=== PATIENT | male | born 1975 ===

== ENCOUNTER 2017-08-20 20:20 | Emergency (ER) | payer SELFPAY ==
[2017-08-20] MEDS ORDERED: Sodium Chloride 0.9% 1,000 ML IV ONE (20:46)
--- NOTE | 2017-08-20 20:50 | C.PDOC ---
History Of Present Illness <Lani Streeter - Last Filed: 08/20/17 23:20> <Roselyn Hunter - Last Filed: 08/21/17 02:12> 41 year old male presents to ED with complaints of sore throat and swelling to the right side of his neck for 6 days. Patient states the swelling has increased and pain now spreading from neck to ear and face. He reports subjective fever and painful to swallow but no difficulty swallowing. He tried OTC cold medicine without relief. He denies any PMH or similar symptoms. ( Lani Streeter) History Per: Patient History/Exam Limitations: no limitations Onset/Duration Of Symptoms: Days (6) Current Symptoms Are (Timing): Still Present Severity: Moderate <Lani Streeter - Last Filed: 08/20/17 23:20> <Roselyn Hunter - Last Filed: 08/21/17 02:12> Time Seen by Provider: 08/20/17 20:37 Chief Complaint (Nursing): Upper Extremity Problem/Injury Past Medical History Reviewed: Historical Data, Nursing Documentation, Vital Signs - Medical History PMH: No Chronic Diseases Surgical History: No Surg Hx Family History: States: Unknown Family Hx - Social History Hx Alcohol Use: No Hx Substance Use: No <Lani Streeter - Last Filed: 08/20/17 23:20> Vital Signs: Last Vital Signs Temp 98.2 F 08/20/17 23:01 Pulse 80 08/20/17 23:01 Resp 16 08/20/17 23:01 BP 111/67 08/20/17 23:01 Pulse Ox 98 08/20/17 23:20 Review Of Systems Constitutional: Positive for: Fever (subjective) Eyes: Negative for: Pain, Vision Change ENT: Positive for: Ear Pain, Throat Pain Cardiovascular: Negative for: Chest Pain, Palpitations Respiratory: Negative for: Cough, Shortness of Breath Gastrointestinal: Negative for: Vomiting, Abdominal Pain, Diarrhea Genitourinary: Negative for: Dysuria Musculoskeletal: Positive for: Neck Pain Skin: Negative for: Rash Neurological: Negative for: Weakness, Numbness <Lani Streeter - Last Filed: 08/20/17 23:20> Physical Exam - Physical Exam Appears: Non-toxic, No Acute Distress Skin: Warm, Dry, No Rash Head: Atraumatic, Normacephalic Eye(s): bilateral: Normal Inspection, EOMI Ear(s): Bilateral: Normal Nose: Normal, No Flaring, No Epistaxis Oral Mucosa: Moist Tongue: Normal Appearing, No Swelling Lips: Normal Appearing, No Swelling Teeth: Normal Dentition Gingiva: Normal Appearing, No Erythema Throat: Normal, No Erythema, No Exudate, No Drooling, No Mass Neck: Normal ROM, Other (tenderness swelling and mild erythema to the anterior right side of neck and thyroid region, no nodules; pain with neck extension) Chest: Symmetrical Cardiovascular: Rhythm Regular, No Murmur Respiratory: Normal Breath Sounds, No Rhonchi, No Wheezing Gastrointestinal/Abdominal: Soft, No Tenderness Back: Normal Inspection Extremity: Bilateral: Atraumatic, Normal Color And Temperature, Normal ROM Neurological/Psych: Oriented x3, Normal Speech <FerdinandLani L - Last Filed: 08/20/17 23:20> ED Course And Treatment - Laboratory Results Result Diagrams: 08/20/17 21:24 08/20/17 21:12 O2 Sat by Pulse Oximetry: 98 - CT Scan/US neck Other Rad Studies (CT/US): Read By Radiologist, Radiology Report Reviewed CT/US Interpretation: EXAM: CT Neck With Intravenous Contrast CLINICAL HISTORY: 41 years old, male; Pain; Neck pain; Additional info: Right neck mass TECHNIQUE : Axial computed tomography images of the neck with intravenous contrast. All CT scans at this facility use one or more dose reduction techniques, viz.: automated exposure control; ma/kV adjustment per patient size (including targeted exams where dose is matched to indication; i.e. head); or iterative reconstruction technique. Coronal and sagittal reformatted images were created and reviewed. CONTRAST: 100 mL of [id number] administered intravenously. COMPARISON: No relevant prior studies available. FINDINGS: Nasopharynx: Unremarkable. Oropharynx: Unremarkable. No significant tonsillar enlargement. No peritonsillar abscess. Hypopharynx: Unremarkable. Larynx: Unremarkable. Normal epiglottis. Trachea: Unremarkable. Retropharyngeal space: Unremarkable. Submandibular/parotid glands: Unremarkable. Glands are normal in size. Thyroid: Asymmetric enlargement of the right lobe of the thyroid gland, without distinct nodularity. Bones/joints: No acute fracture. Soft tissues: Unremarkable. Vasculature: No acute findings. Lymph nodes: Unremarkable. No pathologically enlarged lymphadenopathy. Lung apices: Unremarkable as visualized. IMPRESSION: Asymmetric enlargement of the right lobe of the thyroid gland without discrete nodularity. Dedicated ultrasound may provide additional information, if the patient is clinically able. Thank you for allowing us to participate in the care of your patient. Dictated and Authenticated by: Kristine Deleon MD <Lani Streeter - Last Filed: 08/20/17 23:20> - Laboratory Results Result Diagrams: 08/20/17 21:24 08/20/17 21:12 <Roselyn Hunter - Last Filed: 08/21/17 02:12> Medical Decision Making <Lani Streeter - Last Filed: 08/20/17 23:20> <Roselyn Hunter - Last Filed: 08/21/17 02:12> Medical Decision Making: Impression: right neck pain and swelling, suspect thyroiditis r/o abscess Plan: * Labs * IV NS, Toradol * CT Neck Progress: Labs reviewed showing no leukocytosis. ESR and T4 elevated, TSH is low. CT scan showed asymmetric enlargement of the right lobe of the thyroid gland without discrete nodularity. Findings consistent with thyroiditis. Case discussed with attending who recommends NSAIDs and to follow up outpatient. On re-eval patient has no fever and in no distress. I explained all results including lab findings and CT report findings. I provided patient with copy of results. Advised patient to take NSAIDs and to follow up in the clinic in 1 week for further evaluation, may need US of thyroid and to repeat labs. Patient verbalized understanding and will follow up. (Lani Streeter) Disposition Counseled Patient/Family Regarding: Studies Performed, Diagnosis, Need For Followup, Rx Given - Disposition Disposition Time: 22:54 - POA Present On Arrival: None <Lani Streeter - Last Filed: 08/20/17 23:20> <Roselyn Hunter - Last Filed: 08/21/17 02:12> - Disposition Referrals: Korina Cody MD [Staff Provider] - Disposition: HOME/ ROUTINE Condition: STABLE Additional Instructions: Sonam laboratorios y tomografa computarizada muestran tiroiditis, que es la inflamacin de la glndula tiroides. Es importante lennox medicamentos antiinflamatorios que ayudarn con el dolor. Los sntomas se resolvern por s solos. Realice un seguimiento con bermudez mdico primario o clnica para recibir ms atencin y busque atencin endrocrinloga dentro de 1 semana. Tendr que hacerse neil ecografa tiroidea y repetir los laboratorios. Prescriptions: Ibuprofen [Motrin] 600 mg PO Q8 #30 tab Instructions: Autoimmune Thyroid Disorders ([place]) Forms: [facility] (South Sudanese) Print Language: ALBANIAN - Clinical Impression Clinical Impression: Thyroiditis, subacute
[2017-08-20 21:27] LABS: BASO % 0.6 % (0.0-2.0); EOS # 0.1 K/uL (0.0-0.7); EOS % 1.5 % (0.0-4.0); LYMPH # 1.7 K/uL (1.0-4.3); LYMPH % 21.2 % (20.0-40.0); MEAN CORPUSCULAR HEMOGLOBIN 30.4 pg (27.0-31.0); MEAN CORPUSCULAR HGB CONC 34.6 g/dL (33.0-37.0); MEAN PLATELET VOLUME 9.1 fL (7.2-11.7); MONO # 0.5 K/uL (0.0-0.8); MONO % 5.8 % (0.0-10.0); RED CELL DISTRIBUTION WIDTH 12.9 % (11.5-14.5); WHITE BLOOD COUNT 7.9 K/uL (4.8-10.8)
[2017-08-20 21:34] LABS: RBC URINE < 1 /hpf (0-3); URINE BILIRUBIN NEGATIVE (NEGATIVE); URINE BLOOD NEGATIVE (NEGATIVE); URINE COLOR Yellow (YELLOW); URINE GLUCOSE (UA) NORMAL (Normal); URINE KETONE NEGATIVE (NEGATIVE); URINE LEUKOCYTE ESTERASE NEG Leu/uL (Negative); URINE PROTEIN NEGATIVE (NEGATIVE); WBC URINE 1 /hpf (0-5)
[2017-08-20 21:40] LABS: CHLORIDE 100 mmol/L (98-107); SODIUM 137 mmol/L (132-148)
[2017-08-20 21:42] LABS: BILIRUBIN,TOTAL 0.5 mg/dL (0.2-1.3); CARBON DIOXIDE 25 mmol/L (22-30); GFR AFRICAN-AMERICAN > 60
[2017-08-20 21:43] LABS: ALB/GLOB RATIO 0.9 (1.0-2.1); ALKALINE PHOSPHATASE 170 U/L (38-126); ALT/SGPT 32 U/L (21-72); AST/SGOT 37 U/L (17-59); BLOOD UREA NITROGEN 22 mg/dL (9-20); CALCIUM 9.4 mg/dl (8.6-10.4); GLUCOSE,RANDOM 126 mg/dL (75-110); TOTAL PROTEIN 8.9 g/dL (6.3-8.3)
[2017-08-20] MEDS ORDERED: Iodixanol 320 mg/ml 150 ml Bottle IV ONE (21:50)
[2017-08-20 22:12] LABS: THYROID STIMULATING HORMONE < 0.02 mIU/L (0.46-4.68)
--- NOTE | 2017-08-20 22:45 | CT ---
EXAM: CT Neck With Intravenous Contrast CLINICAL HISTORY: 41 years old, male; Pain; Neck pain; Additional info: Right neck mass TECHNIQUE: Axial computed tomography images of the neck with intravenous contrast. All CT scans at this facility use one or more dose reduction techniques, viz.: automated exposure control; ma/kV adjustment per patient size (including targeted exams where dose is matched to indication; i.e. head); or iterative reconstruction technique. Coronal and sagittal reformatted images were created and reviewed. CONTRAST: 100 mL of [id number] administered intravenously. COMPARISON: No relevant prior studies available. FINDINGS: Nasopharynx: Unremarkable. Oropharynx: Unremarkable. No significant tonsillar enlargement. No peritonsillar abscess. Hypopharynx: Unremarkable. Larynx: Unremarkable. Normal epiglottis. Trachea: Unremarkable. Retropharyngeal space: Unremarkable. Submandibular/parotid glands: Unremarkable. Glands are normal in size. Thyroid: Asymmetric enlargement of the right lobe of the thyroid gland, without distinct nodularity. Bones/joints: No acute fracture. Soft tissues: Unremarkable. Vasculature: No acute findings. Lymph nodes: Unremarkable. No pathologically enlarged lymphadenopathy. Lung apices: Unremarkable as visualized. IMPRESSION: Asymmetric enlargement of the right lobe of the thyroid gland without discrete nodularity. Dedicated ultrasound may provide additional information, if the patient is clinically able.
[2017-08-20 23:01] VITALS: BP 111/67; PULSE 80; RESP 16; TEMP 98.2
[2017-08-20 23:05] VITALS: O2SAT 98
== END 2017-08-20 23:11 | disposition home or self-care (01) ==
LOC: C.ER 20:20
DX: E06.1 Subacute thyroiditis (principal)
CPT/HCPCS: 70491; 80053; 81001; 84439; 84443; 85025; 85651; 96361; 96374; 99285; J1885; J7040; Q9967

== ENCOUNTER 2018-12-29 18:21 | Emergency (ER) | payer SELFPAY ==
--- NOTE | 2018-12-29 19:42 | C.PDOC ---
History Of Present Illness 43 y/o male, non smoker, c/o throat pain for 6 months. pt seen in ed on 08/20/17 and diagnosed with thyroiditis and did not follow up; pt seen again on 12/29/17 for throat pain and no follow up. pt taking Tylenol or motrin for pain. states it gets worse. no fevers, painful swallowing., no hx hiv. Time Seen by Provider: 12/29/18 19:11 Chief Complaint (Nursing): ENT Problem History Per: Patient History/Exam Limitations: language barrier (Leonard [id number]) Onset/Duration Of Symptoms: Days Current Symptoms Are (Timing): Worse Severity: Moderate Past Medical History Reviewed: Historical Data, Nursing Documentation, Vital Signs Vital Signs: Last Vital Signs Temp 99 F 12/29/18 18:27 Pulse 67 12/29/18 18:27 Resp 20 12/29/18 18:27 BP 139/80 12/29/18 18:27 Pulse Ox 100 12/29/18 18:27 - Medical History PMH: No Chronic Diseases Other PMH: thyroiditis per old chart Family History: States: Unknown Family Hx - Social History Hx Tobacco Use: No Hx Alcohol Use: No Hx Substance Use: No - Immunization History Hx Tetanus Toxoid Vaccination: No Hx Influenza Vaccination: No Hx Pneumococcal Vaccination: No Review Of Systems Constitutional: Negative for: Fever, Chills ENT: Positive for: Throat Pain. Negative for: Ear Pain, Nose Pain, Throat Swelling Cardiovascular: Negative for: Chest Pain Respiratory: Negative for: Cough Skin: Negative for: Rash Neurological: Negative for: Weakness, Numbness Physical Exam - Physical Exam Appears: Non-toxic, No Acute Distress Skin: Warm, Dry Head: Atraumatic, Normacephalic Eye(s): bilateral: Normal Inspection Ear(s): Bilateral: Normal Nose: No Discharge Oral Mucosa: Moist Tongue: Normal Appearing Lips: Normal Appearing Teeth: Normal Dentition Gingiva: Normal Appearing Throat: Erythema, No Exudate Neck: Supple Lymphatic: No Adenopathy ED Course And Treatment O2 Sat by Pulse Oximetry: 100 Medical Decision Making Medical Decision Making: old charts reviewed. talked to patient in indian using parts interpreter Leonard [id number]; pt sts it wasn't him with thyroid problem, but his brother.? discussed with pt that this is chronic problem, advised to apply for [facility] [place] [facility] and go to clinic and/or go see ent of choice. strep negative. Disposition Counseled Patient/Family Regarding: Studies Performed, Diagnosis, Need For Followup - Disposition Referrals: [facility] [Outside] [facility] [Outside] Josse Diop MD [Staff Provider] - Disposition: HOME/ ROUTINE Disposition Time: 20:38 Condition: GOOD Additional Instructions: Cornelia un seguimiento en la clnica mdica o con el Dr. Diop (especialista en dolor de garganta y odo, lott pronto nathan sea posible. [place] Tylenol o Motrin para el dolor. Gargel con agua tibia salada varias veces al da. Regrese a la monico de emergencias por cualquier problema de empeoramiento. Follow up in medical clinic or with Dr Diop (ear nose throat specialist as soon as possible. Take Tylenol or Motrin for pain. Gargel with warm salty water several times a day. Return to ER for any worsening problems. Forms: [employer] (Sudanese), [employer] (Turkish), Gen Discharge Inst Turkish Print Language: WOLOF - Clinical Impression Clinical Impression: Throat pain in adult
[2018-12-29 20:47] VITALS: BP 126/84; PULSE 63; RESP 18; TEMP 99
[2019-01-01 02:48] VITALS: O2SAT 100
== END 2018-12-29 20:48 | disposition home or self-care (01) ==
LOC: C.ER 18:21
DX: R07.0 Pain in throat (principal)